=== PATIENT | male | born 1945 | race Caucasian/White ===

== ENCOUNTER 2017-07-09 15:33 | Emergency (ER) | payer OTHER ==
[~2017-07-09] VITALS: Ht 165.1 cm; Wt 61.2 kg
[~2017-07-09 15:33] MED LIST: ACET-2619 PO; CARB200T1 PO; DOCU-299 PO; LOV40I SUBQ; METO-50 PO; PRIM250T70 PO; ZOLP5TAB1 PO
[2017-07-09 15:51] VITALS: BP 157/92
--- NOTE | 2017-07-09 15:59 | NUR ---
patient put on the wc after seen by dr. grover
[2017-07-09] MEDS ORDERED: HYDROcodone/APAP 5/325 MG 1 TAB TAB PO ONE (16:05)
--- NOTE | 2017-07-09 16:23 | NUR ---
Pt to xray via w/c
--- NOTE | 2017-07-09 17:45 | NUR ---
Pt up to bathroom with walker.
--- NOTE | 2017-07-09 19:00 | NUR ---
Patient discharged with v/s stable. Written and verbal after care instructions given and explained. Patient alert, oriented and verbalized understanding of instructions. Wheel Chair Assisted with to car. All questions addressed prior to discharge. ID band removed. Patient advised to follow up with PMD. Rx of norco, ibuprofen given. Patient educated on indication of medication including possible reaction and side effects. Opportunity to ask questions provided and answered. Pt left via own walker with taxi to [facility]. Reports he lives by himself and does all adls. Refuses support or health care social worker. VSS. Requesting more Afton and I told him we can not give him more,requesting more than 10 pills. Pt informed he has Rx.
[2017-07-09 19:23] VITALS: BP 142/86
== END 2017-07-09 19:00 | disposition home or self-care (01) ==
LOC: MED 15:33
DX: S52.025A Nondisplaced fracture of olecranon process without intraarticular extension of left ulna, initial encounter for closed fracture (principal); R03.0 Elevated blood-pressure reading, without diagnosis of hypertension; Z79.899 Other long term (current) drug therapy; Z88.0 Allergy status to penicillin; W01.0XXA Fall on same level from slipping, tripping and stumbling without subsequent striking against object, initial encounter; Y93.01 Activity, walking, marching and hiking; Y92.89 Other specified places as the place of occurrence of the external cause; Y99.8 Other external cause status
CPT/HCPCS: 29105; 73080; 73090; 99284

== ENCOUNTER 2017-08-09 10:14 | Emergency (ER) | payer OTHER ==
[~2017-08-09] VITALS: Ht 170.2 cm; Wt 61.2 kg
[2017-08-09 10:16] VITALS: BP 150/70
[2017-08-09] MEDS ORDERED: NACL 0.9% 1,000 ML IV SCH (11:07)
--- NOTE | 2017-08-09 11:10 | NUR ---
72m biba with c/o weakness. Pt sts he has been laying down on his floor on his apt for the past wk. Pt sts he lives alone. Rest of his family lives out of state. Pt clothes with feces and urine. Erythema to chest and upper anterior bl legs. Rash to perineal area. Wound to left side of forehead. Wound across chest. Wounds to bl knees. See pictures in chart. Pt sts he "fractured" his left elbow. Pt has splint to left arm. Pt is aox4. GCS=15. Pt denies any cp, sob, or back/neck. NAD at this time. ER MD goodrich by bedside. Will continue to monitor.
--- NOTE | 2017-08-09 11:10 | NUR ---
Note undone in EDM - 08/09/17 at 1310 by JUAN 72m biba with c/o weakness. Pt sts he has been laying down on his floor on his apt for the past wk. Pt sts he lives alone. Rest of his family lives out of state. Pt clothes with feces and urine. Erythema to chest and upper anterior bl legs. Rash to perineal area. Wound to left side of forehead. Wound across chest. See pictures in chart. Pt sts he "fractured" his left elbow. Pt has splint to left arm. Pt is aox4. GCS=15. Pt denies any cp, sob, or back/neck. NAD at this time. ER MD goodrich by bedside. Will continue to monitor.
--- NOTE | 2017-08-09 11:16 | NUR ---
xray by bedside
--- NOTE | 2017-08-09 11:20 | NUR ---
pt left to ct via gurney accompanied by resident physician in radiology
--- NOTE | 2017-08-09 11:30 | NUR ---
supercharge repair supervisor john left message with [employer] social studies teacher
--- NOTE | 2017-08-09 11:32 | NUR ---
pt returned from ct via gurney accompanied by resident physician in radiology
[2017-08-09 12:12] LABS: HEMATOCRIT 52.2 % (36-52); MEAN CORPUSCULAR HEMOGLOBIN 31 pg (27-31); MEAN CORPUSCULAR HGB CONC 33 g/dL (33-37); MEAN CORPUSCULAR VOLUME 96 fL (80-94); PLATELET COUNT (AUTO) 384 K/uL (140-450); RED BLOOD CELL COUNT(AUTO) 5.46 MIL/uL (4.20-6.10); RED CELL DISTRIBUTION WIDTH 12.9 % (11.6-13.7)
[2017-08-09 12:27] LABS: LYMPHOCYTES % (MANUAL) 10 % (20-46); MONOCYTES % (MANUAL) 7 % (5-12)
[2017-08-09 12:43] LABS: ALBUMIN 3.5 g/dL (3.4-5.0); ANION GAP 22.9 (8-16); ASPARTATE AMINOTRANSFERASE 36 U/L (15-37); CHLORIDE 104 mmol/L (98-107); CREATININE 1.6 mg/dL (0.7-1.3); GLUCOSE 146 mg/dL (74-106); POTASSIUM 3.9 mmol/L (3.5-5.1); SODIUM SERUM 151 mmol/L (136-145); TOTAL BILIRUBIN 1.6 mg/dL (0.0-1.0)
[2017-08-09 12:46] LABS: UREA NITROGEN, BLOOD 66 mg/dL (7-18)
[2017-08-09] MEDS ORDERED: NACL 0.9% 500 ML IV ONE ×3 (12:55→14:00)
--- NOTE | 2017-08-09 12:55 | NUR ---
attempted to start ralph. pt stated "i haven't had sex in year...beautiful women like you i would like to do it again...you are turning me on". rn stopped to ralph insertion attemp.
--- NOTE | 2017-08-09 13:07 | NUR ---
no neuro changes. pt is aox4. gcs=15. nad. will continue to monitor.
--- NOTE | 2017-08-09 13:07 | NUR ---
patient wasfound at independent living facility where he been on the floor for approx 1 week. he has multiple wound to face, chest, and both knees from laying on carpet for extended period. notification to hospital social worker and they will follow up.
--- NOTE | 2017-08-09 13:28 | NUR ---
Patient to be transferred to [facility]. Is being transferred due to higher level of care. Receiving facility has accepting physician and available space. ER physician has signed transfer form. Patient or responsible green party has agreed to transfer and signed form. Patient belongings inventoried and will be sent with patient. Copy of nursing notes, lab reports, EKG, Physicians Orders and X-rays to be sent with patient. Report called to Collete wire charger at receiving facility. [facility] has been called for transfer. ETA is 1 hour.
[2017-08-09] MEDS ORDERED: LEVOFLOXACIN 500 MG/D5W PREMIX 100 ML IV ONE (13:55)
--- NOTE | 2017-08-09 14:00 | NUR ---
diana social media marketing analyst informed charge lpn and phoebe rn that patient's case does not need a follow up case or aps case at this time.
[2017-08-09 14:31] VITALS: BP 184/95
--- NOTE | 2017-08-09 14:31 | NUR ---
pt stable for transfer. pt left er with amr acls
[2017-08-09 17:15] LABS: BILIRUBIN,URINE 2+ (NEGATIVE); BLOOD, URINE 3+ (NEGATIVE); LEUKOCYTE ESTERASE ,URINE NEGATIVE (NEGATIVE); NITRITE, URINE NEGATIVE (NEGATIVE); UGLUCOSE NEGATIVE (NEGATIVE)
[2017-08-09 17:17] LABS: APPEARANCE,URINE CLEAR (CLEAR); COLOR,URINE AMBER (YELLOW)
[2017-08-09 17:38] LABS: RBC,URINE >100 /HPF (0-5); WBC,URINE NONE SEEN /HPF (0-5)
[2017-08-09 23:40] LABS: PROTHROMBIN TIME 14.6 secs (10.8-13.4)
== END 2017-08-09 14:31 | disposition short-term general hospital (02) ==
LOC: MED 10:14
DX: A41.9 Sepsis, unspecified organism (principal); R65.21 Severe sepsis with septic shock; N28.9 Disorder of kidney and ureter, unspecified; S06.360A Traumatic hemorrhage of cerebrum, unspecified, without loss of consciousness, initial encounter; G40.909 Epilepsy, unspecified, not intractable, without status epilepticus; E86.0 Dehydration; L03.211 Cellulitis of face; L03.313 Cellulitis of chest wall; Z88.0 Allergy status to penicillin; W18.39XA Other fall on same level, initial encounter; Y93.89 Activity, other specified; Y92.89 Other specified places as the place of occurrence of the external cause; Y99.8 Other external cause status
CPT/HCPCS: 36415; 70450; 71045; 72125; 73080; 80053; 80156; 81001; 82550; 82553; 83605; 83874; 83880; 84484; 85025; 85610; 85730; 87040; 87086; 93005; 96361; 96365; 99291; J1956; J7030; Q0092

== ENCOUNTER 2017-10-01 14:35 | Inpatient (IN) | payer OTHER ==
[~2017-10-01] VITALS: Ht 165.1 cm; Wt 61.2 kg
[2017-10-01 14:45] VITALS: BP 133/95
[2017-10-01 15:58] LABS: BASOPHILS # (AUTO) 0.1 K/uL (0.00-0.22); BASOPHILS % (AUTO) 1.6 % (0.0-2.0); EOSINOPHILS % (AUTO) 0.2 % (0.0-4.0); HEMATOCRIT 39.7 % (36-52); LYMPHOCYTES # (AUTO) 1.2 K/uL (2.0-11.5); LYMPHOCYTES % (AUTO) 14.9 % (20.5-51.1); MEAN CORPUSCULAR HEMOGLOBIN 31 pg (27-31); MEAN CORPUSCULAR HGB CONC 33 g/dL (33-37); MEAN CORPUSCULAR VOLUME 95.6 fL (80-94); MONOCYTES # (AUTO) 0.6 K/uL (0.8-1.0); MONOCYTES % (AUTO) 7.1 % (1.7-9.3); NEUTROPHILS # (AUTO) 5.9 K/uL (1.8-7.7); NEUTROPHILS % (AUTO) 76.2 % (42.2-75.2); PLATELET COUNT (AUTO) 434 K/uL (140-450); RED BLOOD CELL COUNT(AUTO) 4.15 MIL/uL (4.20-6.10); RED CELL DISTRIBUTION WIDTH 13.4 % (11.6-13.7); WHITE BLOOD COUNT (AUTO) 7.9 K/uL (4.8-10.8)
[2017-10-01 16:06] LABS: APPEARANCE,URINE CLEAR (CLEAR); BILIRUBIN,URINE 1+ (NEGATIVE); BLOOD, URINE NEGATIVE (NEGATIVE); COLOR,URINE YELLOW (YELLOW); LEUKOCYTE ESTERASE ,URINE NEGATIVE (NEGATIVE); NITRITE, URINE NEGATIVE (NEGATIVE); UGLUCOSE NEGATIVE (NEGATIVE)
[2017-10-01 16:09] LABS: ANION GAP 17.5 (8-16); CARBON DIOXIDE 26.6 mmol/L (21-32); CHLORIDE 103 mmol/L (98-107); CREATININE 1.2 mg/dL (0.7-1.3); GLUCOSE 75 mg/dL (74-106); POTASSIUM 3.1 mmol/L (3.5-5.1); SODIUM SERUM 144 mmol/L (136-145); UREA NITROGEN, BLOOD 23 mg/dL (7-18)
[2017-10-01 16:13] LABS: ALBUMIN 3.3 g/dL (3.4-5.0); ASPARTATE AMINOTRANSFERASE 22 U/L (15-37); TOTAL BILIRUBIN 0.4 mg/dL (0.0-1.0)
[2017-10-01] MEDS ORDERED: POTASSIUM CHLORIDE 10 MEQ TABER PO ONE (16:15)
[2017-10-01] MEDS ORDERED: NACL 0.9% 1,000 ML IV ONE (16:15)
[2017-10-01] MEDS ORDERED: NACL 0.9% 1,000 ML IV SCH (20:54)
[2017-10-01] MEDS ORDERED: ONDANSETRON 4 MG/2 ML VIAL IVP PRN (20:55)
[2017-10-01] MEDS ORDERED: ACETAMINOPHEN 325 MG TAB PO PRN (20:55)
[2017-10-01] MEDS ORDERED: MORPHINE SULFATE 2 MG/ML SYR IVP PRN (20:55)
[2017-10-01] MEDS ORDERED: DOCUSATE SODIUM 100 MG GELCAP PO PRN (21:00)
[2017-10-01 21:35] VITALS: BP 120/87
[2017-10-01] MEDS: METOPROLOL 25 MG TAB PO SCH (22:17)
[2017-10-01] MEDS: carBAMazepine 200 MG TAB PO SCH (22:17)
[2017-10-02] VITALS: BP 115/72
[2017-10-02 07:09] LABS: BASOPHILS # (AUTO) 0.1 K/uL (0.00-0.22); BASOPHILS % (AUTO) 1.2 % (0.0-2.0); EOSINOPHILS % (AUTO) 0.3 % (0.0-4.0); HEMATOCRIT 34.1 % (36-52); HEMOGLOBIN 11.5 g/dL (12.0-18.0); LYMPHOCYTES # (AUTO) 1.1 K/uL (2.0-11.5); LYMPHOCYTES % (AUTO) 19.4 % (20.5-51.1); MEAN CORPUSCULAR HEMOGLOBIN 32 pg (27-31); MEAN CORPUSCULAR HGB CONC 34 g/dL (33-37); MEAN CORPUSCULAR VOLUME 94.3 fL (80-94); MONOCYTES # (AUTO) 0.7 K/uL (0.8-1.0); MONOCYTES % (AUTO) 11.2 % (1.7-9.3); NEUTROPHILS # (AUTO) 3.9 K/uL (1.8-7.7); NEUTROPHILS % (AUTO) 67.9 % (42.2-75.2); PLATELET COUNT (AUTO) 395 K/uL (140-450); RED BLOOD CELL COUNT(AUTO) 3.61 MIL/uL (4.20-6.10); RED CELL DISTRIBUTION WIDTH 13.4 % (11.6-13.7); WHITE BLOOD COUNT (AUTO) 5.8 K/uL (4.8-10.8)
[2017-10-02 07:27] LABS: ALBUMIN 2.7 g/dL (3.4-5.0); ANION GAP 15.1 (8-16); ASPARTATE AMINOTRANSFERASE 18 U/L (15-37); CARBON DIOXIDE 26.1 mmol/L (21-32); CHLORIDE 107 mmol/L (98-107); CREATININE 0.9 mg/dL (0.7-1.3); GLUCOSE 85 mg/dL (74-106); POTASSIUM 3.2 mmol/L (3.5-5.1); SODIUM SERUM 145 mmol/L (136-145); TOTAL BILIRUBIN 0.2 mg/dL (0.0-1.0); UREA NITROGEN, BLOOD 16 mg/dL (7-18)
[2017-10-02 08:00] VITALS: BP 125/80
[2017-10-02] MEDS ORDERED: ENOXAPARIN 30 MG/0.3 ML SYR SUBQ SCH (09:00)
[2017-10-02] MEDS: METOPROLOL 25 MG TAB PO SCH (09:45)
[2017-10-02] MEDS: carBAMazepine 200 MG TAB PO SCH (09:45)
[2017-10-02 12:20] VITALS: BP 145/76
[2017-10-02 14:47] VITALS: BP 145/76
== END 2017-10-02 15:50 | disposition home or self-care (01) | DRG 640 ==
LOC: MED 14:35 → MTU 20:57 → UNDOADMIN 20:57
PROVIDERS: ADMIT Hospitalist; ATTEND Hospitalist
DX: E86.0 Dehydration (principal); E43 Unspecified severe protein-calorie malnutrition; G40.909 Epilepsy, unspecified, not intractable, without status epilepticus; E87.6 Hypokalemia; W05.0XXA Fall from non-moving wheelchair, initial encounter; I10 Essential (primary) hypertension; G89.29 Other chronic pain; F41.9 Anxiety disorder, unspecified; G47.00 Insomnia, unspecified; M54.5 Low back pain; Y93.89 Activity, other specified; Y99.8 Other external cause status; Z88.0 Allergy status to penicillin; Y92.098 Other place in other non-institutional residence as the place of occurrence of the external cause
CPT/HCPCS: 36415; 80053; 81003; 83605; 85025; 87040; 87081; 93005; 96360; 97140; 99285; J1650; J7030

== ENCOUNTER 2017-10-30 19:50 | Inpatient (IN) | payer OTHER ==
[~2017-10-30] VITALS: Ht 162.6 cm; Wt 69.9 kg
[2017-10-30 19:50] VITALS: BP 165/114
--- NOTE | 2017-10-30 19:50 | NUR ---
BIBA TO ER BED 4
--- NOTE | 2017-10-30 19:56 | NUR ---
72Y M BIBA FROM [facility] FOR GENERALIZED WEAKNESS AND FALL X 4 HOURS AGO, PER EMS PT WAS FOUND LYING IN THE BATHTUB WITH INCONTINENCE. AOX4, GCS 15, DENIES ANY PAIN AT THIS TIME. PT ALSO DENIES ANY N/V/D,SOB, CP AT THE MOMENT. PT ALERT AND APPROPRIATE. NO SIGNS OF DISTRESS AT THIS TIME. ER MD DR LARSON MADE AWARE. PMH: EPILEPSY
--- NOTE | 2017-10-30 19:56 | NUR ---
WEI LU AT BEDSIDE. PT PLACED ON 5150 HOLD FOR GRAVELY DISABLED
--- NOTE | 2017-10-30 19:56 | NUR ---
Patient in hospital gown. Personal belongings removed from room and stored WITH [place] [employer]. Patient desire to harm self or others. Potentially harmful items removed from room. Under direct observation of HARRISON WOODALL. Will continue to monitor.
--- NOTE | 2017-10-30 20:12 | NUR ---
DR. LARSON AT BED SIDE EVALUATING PT.
[2017-10-30] MEDS ORDERED: NACL 0.9% 1,000 ML IV ONE (20:15)
[2017-10-30 20:36] LABS: BASOPHILS % (AUTO) 0.5 % (0.0-2.0); HEMATOCRIT 42.5 % (36-52); HEMOGLOBIN 14.4 g/dL (12.0-18.0); LYMPHOCYTES # (AUTO) 0.9 K/uL (2.0-11.5); LYMPHOCYTES % (AUTO) 15.6 % (20.5-51.1); MEAN CORPUSCULAR HEMOGLOBIN 32 pg (27-31); MEAN CORPUSCULAR HGB CONC 34 g/dL (33-37); MEAN CORPUSCULAR VOLUME 94.1 fL (80-94); MONOCYTES # (AUTO) 0.4 K/uL (0.8-1.0); MONOCYTES % (AUTO) 6.8 % (1.7-9.3); NEUTROPHILS # (AUTO) 4.6 K/uL (1.8-7.7); NEUTROPHILS % (AUTO) 77.1 % (42.2-75.2); PLATELET COUNT (AUTO) 369 K/uL (140-450); RED BLOOD CELL COUNT(AUTO) 4.52 MIL/uL (4.20-6.10); RED CELL DISTRIBUTION WIDTH 13.7 % (11.6-13.7); WHITE BLOOD COUNT (AUTO) 5.9 K/uL (4.8-10.8)
[2017-10-30 20:36] LABS: APPEARANCE,URINE CLEAR (CLEAR); BILIRUBIN,URINE NEGATIVE (NEGATIVE); BLOOD, URINE NEGATIVE (NEGATIVE); COLOR,URINE YELLOW (YELLOW); LEUKOCYTE ESTERASE ,URINE NEGATIVE (NEGATIVE); NITRITE, URINE NEGATIVE (NEGATIVE); UGLUCOSE NEGATIVE (NEGATIVE)
--- NOTE | 2017-10-30 20:40 | NUR ---
CALLED [facility] FOR ([phone]) DINNER TRAY
[2017-10-30 20:46] LABS: ANION GAP 13.1 (8-16); CARBON DIOXIDE 29.5 mmol/L (21-32); CHLORIDE 101 mmol/L (98-107); CREATININE 1.3 mg/dL (0.7-1.3); GLUCOSE 141 mg/dL (74-106); POTASSIUM 3.6 mmol/L (3.5-5.1); SODIUM SERUM 140 mmol/L (136-145); UREA NITROGEN, BLOOD 25 mg/dL (7-18)
[2017-10-30 20:51] LABS: ALBUMIN 3.9 g/dL (3.4-5.0); ASPARTATE AMINOTRANSFERASE 20 U/L (15-37); TOTAL BILIRUBIN 0.2 mg/dL (0.0-1.0)
[2017-10-30 21:27] LABS: BARBITURATE, URINE POS. ng/ml (NEG <=200); BENZODIAZEPINE, URINE POS. ng/mL (NEG <=200); CANNABINOID, URINE NEG. ng/mL (NEG <=50); COCAINE, URINE NEG. ng/mL (NEG <=300); OPIATE, URINE NEG. ng/mL (NEG <=2000); PHENCYCLIDINE SCREEN,URINE NEG. ng/mL (NEG <=25)
--- NOTE | 2017-10-30 22:00 | NUR ---
PT RESTING IN BED AND UNDER DIRECT OBSERVATION. VSS AND RR EVEN AND UNLABORED. DENIES PAIN OR DISCOMFORT.
--- NOTE | 2017-10-30 23:51 | NUR ---
PT RESTING IN BED. DENIES ANY PAIN OR DISCOMFORT. NO ACUTE DISTRESS NOTED. WILL CONTINUE TO MONITOR.
[2017-10-31] MEDS ORDERED: PRIMIDONE 250 MG TAB PO ONE (00:40)
[2017-10-31] MEDS ORDERED: carBAMazepine 200 MG TAB PO ONE ×2 (00:40→05:00)
--- NOTE | 2017-10-31 00:47 | NUR ---
PRIMIDONE NOT AVAILABLE IN THE ER PIXIES. NORIFIED HOUSE SUP AND AWAITING FOR MED.
--- NOTE | 2017-10-31 01:15 | NUR ---
PRIMADONE MED ADMINISTERED ORDERED.
--- NOTE | 2017-10-31 02:12 | NUR ---
Patient appears to be resting comfortably in bed. Vital Signs within normal limits. Respirations even and unlabored.
--- NOTE | 2017-10-31 03:46 | NUR ---
PT CONTINUES TO BE UNDER DIRECT OBSERVATION BY JOSE C MOHR.
--- NOTE | 2017-10-31 04:08 | NUR ---
[facility]. Faxed packet to [facility].
[2017-10-31] MEDS ORDERED: ACETAMINOPHEN 325 MG TAB PO PRN (04:15)
[2017-10-31] MEDS ORDERED: ONDANSETRON 4 MG/2 ML VIAL IVP PRN (04:15)
[2017-10-31] MEDS: NACL 0.9% 1,000 ML IV SCH ×2 (04:26→16:09)
--- NOTE | 2017-10-31 04:30 | NUR ---
LABS AT BED SIDE.
[2017-10-31 05:05] LABS: CREATINE KINASE MB 0.7 ng/mL (0-3.6)
--- NOTE | 2017-10-31 05:05 | NUR ---
Patient will be admitted to care of DR. ORTEGA. Admited to TELEMETRY. Will go to room 106A. Belongings list completed AND BELONGINGS WITH SECURITY. Report to ZAKIYA ROQUE.
[2017-10-31 05:10] VITALS: BP 160/89
--- NOTE | 2017-10-31 05:10 | NUR ---
PT BROUGHT FROM ER IN STABLE CONDITION. REPORT GIVEN BY ANDRIY SIGALA, PT IS AAOX4 ON ROOM AIR. NO S/S OF DISTRESS NOTED. IV TO L AC 20G PATENT AND INTACT INFUSING WELL. SKIN WARM AND DRY TO TOUCH, WOUND TO CHEST AND R SIDE OF HEAD, CLOSED WITH SCABS. RR EVEN/UNLABORED, BOWEL SOUNDS PRESENT. INITIAL ASSESSMENT COMPLETED, PLAN OF CARE DISCUSSED WITH PT, VERBALIZED UNDERSTANDING. ALL SAFETY PRECAUTIONS MET, CALL LIGHT WITHIN REACH, WILL CONTINUE TO MONITOR
--- NOTE | 2017-10-31 05:11 | NUR ---
1:[address], PT HAS NO SUICIDAL IDEATION, NO PLAN
--- NOTE | 2017-10-31 07:16 | NUR ---
REPORT GIVEN TO DAY NURSE, PT IN STABLE CONDITION. NO S/S OF DISTRESS NOTED
--- NOTE | 2017-10-31 07:18 | NUR ---
REPORT RECEIVED FROM THERAPIST PHYSICAL NURSE AT BEDSIDE FOR CONTINUITY OF CARE. PATIENT IS AAOX4 ON ROOM AIR. NO S/S OF DISTRESS NOTED. IV TO L AC 20G PATENT AND INTACT INFUSING IVF WELL. SKIN WARM AND DRY TO TOUCH, WOUND TO CHEST AND R SIDE OF FOREHEAD, LEFT CHEEK, AND BILATERAL KNEES, CLOSED WITH SCABS. RESPIRATIONS EVEN AND UNLABORED, BOWEL SOUNDS PRESENT. UPDATED THE BOARD, PATIENT STATES THAT HE "WANTS TO GO HOME," AND THAT HE "WANTS TO TALK TO THE DOCTOR". INFORMED PATIENT THAT DOCTOR WILL BE IN LATER TO SEE HIM, PATIENT VERBALIZED UNDERSTANDING. SAFETY PRECAUTIONS IN PLACE WITH 1:1 SITTER, CALL LIGHT WITHIN REACH, WILL CONTINUE TO MONITOR PATIENT.
[2017-10-31 08:00] VITALS: BP 147/79
[2017-10-31] MEDS: ENOXAPARIN 40 MG/0.4 ML SYR SUBQ SCH (09:00)
[2017-10-31] MEDS ORDERED: PRIMIDONE 250 MG TAB PO SCH ×2 (09:00→10:30)
--- NOTE | 2017-10-31 09:46 | NUR ---
PAGED DR. ORTEGA ABOUT PATIENT'S MEDICATIONS. WILL AWAIT HER CALL BACK.
--- NOTE | 2017-10-31 10:30 | NUR ---
DR. ORTEGA CALLED BACK. NEW ORDERS IN FOR PATIENT'S MEDICATION. WILL WAIT FOR PHARMACY'S VERIFICATION. PATIENT NOW RESTING IN BED, NO DISTRESS OR SOB NOTED ON ROOM AIR. PATIENT DENIES PAIN AT THIS MOMENT. SAFETY PRECAUTION IN PLACE, 1:1 SITTER, WILL CONTINUE TO MONITOR PATIENT.
[2017-10-31] MEDS ORDERED: carBAMazepine 200 MG TAB PO SCH (11:00)
[2017-10-31] MEDS ORDERED: PRIMIDONE 50 MG TAB PO SCH (11:00)
[2017-10-31] MEDS ORDERED: METOPROLOL 25 MG TAB PO SCH (11:00)
--- NOTE | 2017-10-31 11:09 | NUR ---
NO UPDATES ON CONTACTED FACILITIES AT THIS TIME. WILL UPDATE FACILITY WHEN NEW INFORMATION HAS BEEN RECEIVED AND WILL CONTINUE TO LOOK FOR PLACEMENT FOR PATIENT.
--- NOTE | 2017-10-31 11:28 | NUR ---
ADMINISTERED ORDERED MEDICATIONS. PATIENT TOLERATED THEM WELL. PATIENT NOW RESTING IN BED, PATIENT REQUESTING TO SPEAK TO THE DOCTOR, HE "WANTS TO GO HOME," HE "FEELS BETTER, AND I CAN WALK". INFORMED PATIENT THAT DOCTOR WILL BE IN LATER TODAY TO SEE HIM. PATIENT VERBALIZED UNDERSTANDING BUT IS ANXIOUS TO GO HOME. NO DISTRESS OR SOB NOTED ON ROOM AIR. PATIENT DENIES PAIN AT THIS MOMENT. SAFETY PRECAUTION IN PLACE, 1:1 SITTER, WILL CONTINUE TO MONITOR PATIENT.
[2017-10-31 12:00] VITALS: BP 156/87
--- NOTE | 2017-10-31 14:21 | NUR ---
PATIENT AMBULATED ON UNSTEADY GAIT TO THE BATHROOM AND BACK TO BED, ASSISTED BY RN AND MOLECULAR MODELER. PATIENT HAD BOWEL MOVEMENT. PATIENT NOW RESTING IN BED, NO SIGNS OF DISTRESS NOTED. PATIENT DENIES PAIN. SAFETY PRECAUTION IN PLACE, 1:1 SITTER, WILL CONTINUE TO MONITOR PATIENT.
[2017-10-31 16:00] VITALS: BP 147/83
[2017-10-31] MEDS ORDERED: ZOLPIDEM 5 MG TAB PO PRN (16:00)
[2017-10-31] MEDS ORDERED: DOCUSATE SODIUM 100 MG GELCAP PO PRN (16:00)
--- NOTE | 2017-10-31 16:00 | NUR ---
DR. ORTEGA IN TO SEE THE PATIENT. WILL WAIT FOR HER UPDATED ORDERS.
--- NOTE | 2017-10-31 16:02 | NUR ---
Called [facility] and s/w Isma, they have no beds at this time and are still reviewing charts. Called [facility] and s/w Clover, they have no beds at this time and are still reviewing charts. Called [facility] and s/w Nyla, No beds at this time. Called [facility] and s/w Jana, they have no vacancy. Called [facility] and s/w Kan, No Beds at this time. Called [facility] and s/w Easton, No vacancies at this time. Called [facility] and s/w Marilu, No beds at this time. Called [facility] and s/w Joyce, no vacancies at this time. Called [facility] and s/w Janet, No beds available at this time. no Update on contacted facilities at this time. Will endorse to casino shift manager to keep looking for placement.
--- NOTE | 2017-10-31 16:57 | NUR ---
DR. JAIME IN TO SEE THE PATIENT. PATIENT IS NO LONGER ON 5150 HOLD.
--- NOTE | 2017-10-31 17:42 | NUR ---
PATIENT SITTING UP IN BED EATING DINNER. NO DISTRESS OR SOB NOTED ON ROOM AIR. PATIENT DENIES PAIN AT THIS MOMENT. SAFETY PRECAUTION IN PLACE, CALL LIGHT WITHIN REACH. WILL CONTINUE TO MONITOR PATIENT.
--- NOTE | 2017-10-31 19:29 | NUR ---
REPORT GIVEN TO CLINICAL TECHNICIAN NURSE AT BEDSIDE FOR CONTINUITY OF CARE. PATIENT IN STABLE CONDITION.
--- NOTE | 2017-10-31 19:30 | NUR ---
REPORT RECEIVED FROM KAYLEIGH RN, PT IS AAOX4 ON ROOM AIR. NO S/S OF DISTRESS NOTED. IV TO L AC 20G PATENT AND INTACT INFUSING WELL. SKIN WARM AND DRY TO TOUCH, WOUND TO CHEST AND R SIDE OF HEAD, RIDE SIDE OF FACE AND KNEES, CLOSED WITH SCABS.RR EVEN/UNLABORED, BOWEL SOUNDS PRESENT. INITIAL ASSESSMENT COMPLETED, PLAN OF CARE DISCUSSED WITH PT, VERBALIZED UNDERSTANDING. ALL SAFETY PRECAUTIONS MET, CALL LIGHT WITHIN REACH, WILL CONTINUE TO MONITOR
[2017-10-31 20:00] VITALS: BP 148/86
--- NOTE | 2017-10-31 20:45 | NUR ---
PT VISIBLY AGITATED. PT STATING, "I NEED TO GET OUT OF HERE, THIS PLACE HAS DONE NOTHING FOR ME BUT TAKE MY BLOOD AND MY BLOOD PRESSURE. YOU WERE SUPPOSED TO GET EGD 10 HOURS AGO. I NEED TO WALK HOME NOW." EXPLAINED TO PT THAT HE IS IN THE HOSPITAL AND IN NEED OF MEDICAL CARE, IT IS NOT SAFE FOR HIM TO WALK HOME. PT STATED HE WILL ONLY STAY UNTIL MORNING AND TO NOT GIVE HIM BREAKFAST.
[2017-10-31] MEDS: METOPROLOL 25 MG TAB PO SCH (21:18)
[2017-10-31] MEDS: carBAMazepine 200 MG TAB PO SCH (21:18)
--- NOTE | 2017-10-31 21:30 | NUR ---
ADMINISTERED NIGHT TIME MEDICATIONS WITH EDUCATION OF MEDICATION, EFFECTS, SIDE EFFECTS, AND USES. PT VERBALIZED UNDERSTANDING BUT PT STATES, "YOU NEED TO WALK UP STAIRS TO ER AND GRAB ALL THE MEDICATIONS THAT YOU CAN TO GIVE ME." I EXPLAINED TO PT THAT HE CAN ONLY TAKE MEDICATIONS THAT HAVE BEEN ORDERED BY A DOCTOR. PT GOT AGITATED AND STATED, "YOU CAN DO THAT, YOU DON'T NEED THE DOCTOR." PT ALSO STATED, "YOU ARE THE GOVERNMENT AND YOU ARE STEALING MY MONEY."
--- NOTE | 2017-10-31 22:30 | NUR ---
PT PROVIDED URINAL REQUESTED BUT PT WET THE BED, PT CHANGED, KEPT CLEAN AND DRY. WILL CONTINUE TO MONITOR
[2017-11-01] VITALS: BP 135/55
[2017-11-01] MEDS: NACL 0.9% 1,000 ML IV SCH (03:27)
[2017-11-01 04:00] VITALS: BP 135/68
[2017-11-01 06:09] LABS: BASOPHILS # (AUTO) 0.1 K/uL (0.00-0.22); BASOPHILS % (AUTO) 1.1 % (0.0-2.0); EOSINOPHILS % (AUTO) 0.2 % (0.0-4.0); HEMATOCRIT 36.6 % (36-52); HEMOGLOBIN 12.3 g/dL (12.0-18.0); LYMPHOCYTES # (AUTO) 1.7 K/uL (2.0-11.5); LYMPHOCYTES % (AUTO) 29.1 % (20.5-51.1); MEAN CORPUSCULAR HEMOGLOBIN 32 pg (27-31); MEAN CORPUSCULAR HGB CONC 34 g/dL (33-37); MEAN CORPUSCULAR VOLUME 94.5 fL (80-94); MONOCYTES # (AUTO) 0.7 K/uL (0.8-1.0); MONOCYTES % (AUTO) 11.7 % (1.7-9.3); NEUTROPHILS # (AUTO) 3.4 K/uL (1.8-7.7); NEUTROPHILS % (AUTO) 57.9 % (42.2-75.2); PLATELET COUNT (AUTO) 344 K/uL (140-450); RED BLOOD CELL COUNT(AUTO) 3.87 MIL/uL (4.20-6.10); RED CELL DISTRIBUTION WIDTH 14.1 % (11.6-13.7); WHITE BLOOD COUNT (AUTO) 5.8 K/uL (4.8-10.8)
--- NOTE | 2017-11-01 07:05 | NUR ---
ASSUMED CONTINUITY OF CARE. NO SIGNS AND SYMPTOMS OF ACUTE DISTRESS NOTED. INITIAL ASSESSMENT DONE. KEEP COMFORTABLE ON BED. EXPLAINED DIAGNOSIS, PLAN OF CARE, PAIN MANAGEMENT TEACHING, USE OF CALL LIGHT/BED/TV/BATHROOM. VERBALIZED UNDERSTANDING. FALL PRECAUTION APPLIED. CALL LIGHT WITHIN REACH.
--- NOTE | 2017-11-01 07:06 | NUR ---
REPORT GIVEN TO DAY NURSE. PT IN STABLE CONDITION NO S/S OF DISTRESS NOTED
--- NOTE | 2017-11-01 07:06 | NUR ---
Patient's Plan of Care was discussed and reviewed with FISH NET STRINGER: Alfie GU
--- NOTE | 2017-11-01 07:17 | NUR ---
CHECKED ON PATIENT. PATIENT IS ASLEEP. NO SIGNS AND SYMPTOMS OF DISTRESS NOTED. BREATHING EVEN AND UNLABORED. WILL CONTINUE TO MONITOR.
[2017-11-01 07:29] LABS: PHOSPHORUS 3.1 mg/dL (2.5-4.9)
[2017-11-01 07:31] LABS: ANION GAP 12.9 (8-16); CARBON DIOXIDE 27.7 mmol/L (21-32); CHLORIDE 101 mmol/L (98-107); CREATININE 1.2 mg/dL (0.7-1.3); GLUCOSE 93 mg/dL (74-106); POTASSIUM 3.6 mmol/L (3.5-5.1); SODIUM SERUM 138 mmol/L (136-145); UREA NITROGEN, BLOOD 25 mg/dL (7-18)
[2017-11-01 07:43] LABS: CREATINE KINASE MB 1.3 ng/mL (0-3.6)
[2017-11-01 08:00] VITALS: BP 158/75
[2017-11-01] MEDS: METOPROLOL 25 MG TAB PO SCH ×2 (08:39→21:12)
[2017-11-01] MEDS: PRIMIDONE 50 MG TAB PO SCH (08:39)
[2017-11-01] MEDS: carBAMazepine 200 MG TAB PO SCH ×2 (08:40→21:12)
[2017-11-01] MEDS: ENOXAPARIN 40 MG/0.4 ML SYR SUBQ SCH (08:45)
--- NOTE | 2017-11-01 09:40 | NUR ---
PHYSICAL THERAPIST CAME FOR PT. EVAL AND TREATMENT.
--- NOTE | 2017-11-01 11:22 | NUR ---
PATIENT HAS BEEN SCREENED AND CATEGORIZED MODERATE NUTRITION RISK. PATIENT WILL BE SEEN WITHIN 3-5 DAYS OF ADMISSION. 11/02/17 11/04/[address]
--- NOTE | 2017-11-01 11:49 | NUR ---
SPOKE WITH SNOW FROM [facility]. FAX REVIEW TO THEM AT [phone] PHONE [phone] I CALLED [facility] AND SPOKE WITH CLARY. SHE SAID REVIEWS GO TO [facility].
[2017-11-01 12:00] VITALS: BP 135/64
--- NOTE | 2017-11-01 14:32 | NUR ---
RECEIVED A CALL FROM DR. NOVA FROM [facility]. SHE ASKED IF HE NEEDED A SNF. SHE SAID [address] WILL BE LOOKING FOR A SNF. PHONE [phone] OPT 1
[2017-11-01 16:00] VITALS: BP 134/68
--- NOTE | 2017-11-01 16:00 | NUR ---
VITALS SIGNS STABLE. NO C/O PAIN. WILL MONITOR.
--- NOTE | 2017-11-01 19:20 | NUR ---
BEDSIDE REPORT GIVEN TO RUFINO KNIGHT -ZAKIYA. IN STABLE CONDITION.
--- NOTE | 2017-11-01 19:21 | NUR ---
RECEIVED REPORT FROM DAY SHIFT NURSE. AAOX4. NO DISTRESS NOTED. IV TO LEFT FA #22G, PATENT AND INTACT. PT ON ROOM AIR. PT HAS SCABS TO LEFT CHEEK, CHEST AND BOTH KNEES. NO C/O PAIN. DISCUSSED PLAN OF CARE, PT VERBALIZED UNDERSTANDING. FALL AND SEIZURE PRECAUTION IN PLACE. CALL LIGHT WITHIN REACH.
[2017-11-01 20:00] VITALS: BP 141/76
--- NOTE | 2017-11-01 20:40 | NUR ---
RECEIVED CALL FROM MAXIMILIANO OF [facility]. PER MAXIMILIANO, SHE'S LOOKING FOR SNF PLACEMENT FOR THE PT AND IF SHE FIND ONE, PT WILL BE TRANSFERRED TONIGHT. SHE ASKED IF THE PT HAS PREFERRED SNF LOCATION. PT WAS ASKED AND STATED THAT HE PREFERS SNF IN [place] OR CLOSE TO [place]. PT MADE AWARE THAT IF THEY FIND AVAILABLE SNF TONIGHT HE WILL BE TRANSFERRED. PT STATED THAT HE WANTED TO BE TRANSFERRED TOMORROW. MAXIMILIANO MADE AWARE AND STATED SHE WILL COORDINATE WITH THE STUDENT SUCCESS ADVISOR TOMORROW.
--- NOTE | 2017-11-01 23:00 | NUR ---
PT IN BED, AWAKE. NO C/O PAIN. NO RESP DISTRESS NOTED. NEEDS MET AT THIS TIME. CALL LIGHT WITHIN REACH.
[2017-11-02] VITALS: BP 149/81
--- NOTE | 2017-11-02 01:35 | NUR ---
PT SLEEPING BUT EASILY AROUSABLE. NO S/S OF DISTRESS. SEIZURE AND FALL PRECAUTION IN PLACE.
--- NOTE | 2017-11-02 03:56 | NUR ---
PT SLEEPING BUT WAKES EASILY. RESP EVEN AND UNLABORED. NO S/S OF PAIN OR DISCOMFORT.
[2017-11-02 04:00] VITALS: BP 143/67
--- NOTE | 2017-11-02 06:05 | NUR ---
PT LYING COMFORTABLY IN BED, AWAKE. NO C/O PAIN. NO RESP DISTRESS NOTED. CALL LIGHT WITHIN REACH.
--- NOTE | 2017-11-02 07:25 | NUR ---
ENDORSED PT TO DAY SHIFT NURSE. PT IN STABLE CONDITION.
--- NOTE | 2017-11-02 07:26 | NUR ---
REPORT OBTAINED FROM ARCHITECTURE TECHNICIAN NURSE AT BEDSIDE, PT IS AAOX4, NEPALI SPEAKING, ABLE TO FOLLOW COMMANDS AND MAKE NEEDS KNOWN. NO S/S OF DISTRESS, CLEAR LUNG SOUNDS, ON RA, DENIES CHEST PAIN, SR ON TELE MONITOR, SOFT ABDOMEN WITH ACTIVE BOWEL SOUNDS, CONTINENT WITH B&B'S, ABLE TO USE BATHROOM WITH STEADY GAIT. SKIN IS INTACT, WARM AND DRY TO TOUCH, IV SITE TO LEFT FOREARM, 22GA, PATENT AND SL. EXPLAINED POC TO PT, PT VERBALIZED UNDERSTANDING, SAFETY MEASURE IN PLACE, CALL LIGHT WITHIN REACH, WILL CONTINUE TO MONITOR.
[2017-11-02 08:00] VITALS: BP 154/77
[2017-11-02] MEDS: PRIMIDONE 50 MG TAB PO SCH ×2 (08:49→16:04)
[2017-11-02] MEDS: METOPROLOL 25 MG TAB PO SCH ×3 (08:49→22:04)
[2017-11-02] MEDS: carBAMazepine 200 MG TAB PO SCH ×2 (08:50→16:04)
[2017-11-02] MEDS: ENOXAPARIN 40 MG/0.4 ML SYR SUBQ SCH (08:55)
--- NOTE | 2017-11-02 10:55 | NUR ---
Attempted to contact Patient's brother Terrell Kumar at to discuss, confirm and provide patient's status (As Patient requested during screen). Mr. Terrell Kumar was not available and I left him a voice mail MGS with my contact information and request for a call back.
[2017-11-02 12:00] VITALS: BP 160/88
--- NOTE | 2017-11-02 14:00 | NUR ---
SPOKE WITH DR NOVA EARLIER FROM [facility]. THEY ARE STILL LOOKING FOR PLACEMENT. FAXED CONCURRENT REVIEW TO [facility] [phone] PHONE [phone]
--- NOTE | 2017-11-02 15:22 | NUR ---
PT STATED HE WAS TAKING TEGRETOL 200MG AND MYSOLINE 250MG THREE TIMES A DAY, CLARIFIED WITH COLETTE ANGELA TO CHANGE THE ORDER.
[2017-11-02 16:00] VITALS: BP 138/75
--- NOTE | 2017-11-02 19:24 | NUR ---
REPORT GIVEN TO CLINICAL ALLERGIST NURSE FOR CONTINUE OF CARE, PT IS IN STABLE CONDITION AT THIS TIME.
--- NOTE | 2017-11-02 19:27 | NUR ---
RECEIVED PT FROM LORENZO RN PT AAOX3 FOLLOW COMMANDS NOT DISTRESS NOTEE ON TELMETRY SR, HL ON LEFT FA PATENT INITIAL ASSESSMENT DONE
[2017-11-02 20:00] VITALS: BP 157/88
[2017-11-02] MEDS ORDERED: carBAMazepine 200 MG TAB PO SCH (21:00)
[2017-11-02] MEDS ORDERED: PRIMIDONE 50 MG TAB PO SCH (21:00)
--- NOTE | 2017-11-02 22:00 | NUR ---
PT VOIDING WELL REPOSITIONED AND GETTING SLEEP ON TELE SR
[2017-11-03] VITALS: BP 157/77
--- NOTE | 2017-11-03 | NUR ---
PT SLEEPING WELL NOT DISTRESS NOTED REPOSITIONED Q2H ON TELEMETRY SR
[2017-11-03 04:00] VITALS: BP 146/71
--- NOTE | 2017-11-03 04:00 | NUR ---
SPONGE BATH GIVEN LINEN CHANGED NOT DISTRESS NOTED REPOSITIONED Q2H NOT SEIZURES ACTIVITY NOTED
--- NOTE | 2017-11-03 06:20 | NUR ---
VOIDING WELL ON TELEMETRY SR DENIES ANY DISCOMFORT AT THIS TIME
--- NOTE | 2017-11-03 07:30 | NUR ---
RECEIVED REPORT FROM HEAVY MOBILE EQUIPMENT OPERATOR NURSE AT BEDSIDE. PT IS AAOX3, ABLE TO FOLLOW COMMANDS AND MAKE NEEDS KNOWN. NO S/S OF DISTRESS, CLEAR LUNG SOUNDS, ON RA, DENIES ANY PAIN, MULTIPLE SCABS NOTED TO BLE, FACE, AND CHEST. IV SITE TO LEFT FOREARM, 22GA, PATENT, ASYMPTOMATIC AND SL. EXPLAINED POC TO PT, PT VERBALIZED UNDERSTANDING, SAFETY MEASURE IN PLACE, CALL LIGHT WITHIN REACH, WILL CONTINUE TO MONITOR.
[2017-11-03 08:00] VITALS: BP 160/78
[2017-11-03] MEDS: PRIMIDONE 50 MG TAB PO SCH ×3 (08:50→17:28)
[2017-11-03] MEDS: METOPROLOL 25 MG TAB PO SCH (08:51)
[2017-11-03] MEDS: carBAMazepine 200 MG TAB PO SCH ×3 (08:51→17:28)
[2017-11-03] MEDS: ENOXAPARIN 40 MG/0.4 ML SYR SUBQ SCH (08:55)
--- NOTE | 2017-11-03 08:55 | NUR ---
SCHEDULED MEDS GIVEN. PT TOLERATED WELL. PLACED PERSONAL ITEMS CLOSE TO PT. NO S/S OF ACUTE DISTRESS.
--- NOTE | 2017-11-03 11:00 | NUR ---
Skeiner's Notes: I received a call from Patient's brother Mr. Terrell Kumar, he stated that he has a power of assistant county attorney for Patient and stated been his healthcare decision maker. Mr. Eduardo requested my fax number to fax a copy of the power or assistant county attorney he also stated having contact with Vy LiPatient's western tack assembly line worker at [facility]. Per Mr. Eduardo patient has been having difficulties with the retail associate manager bilingual due to his lack of hygiene and maintenance of his apartment. Per Mr. Terrell Eduardo he will be contacting patient's fight manager and handling the apartment issue and patient's belongings. He stated that patient has not been served with an eviction notice as ermelinda as he is concern and will be talking about that issue with the retail associate manager bilingual and patient when he is able. I informed Mr. Terrell Eduardo about my role as a dairy worker and my abilities to assist and provide resources to the Patient's with in my scope of practice. I informed him that placement to a SNF ([facility]) is only temporary and that is one of the MD recommendations for patient at this moment. In addition to that informed Mr. Terrell Eduardo to start addressing his current living situation with patient to have a plan for when patient is discharged from a SNF. Mr. Eduardo agreed and stated that he will follow up and will continue contact with these play writer. He thanked me for talking to him and providing him with Patient's status and ended the call.
[2017-11-03 12:00] VITALS: BP 106/67
--- NOTE | 2017-11-03 13:46 | NUR ---
11/03/17 RD INITIAL ASSESSMENT COMPLETED PLEASE REFER TO NUTRITION ASSESSMENT UNDER CARE ACTIVITY FOR ESTIMATED NUTRITIONAL NEEDS. 1. CONTINUE DIET TOLERATED 2. RD TO FOLLOW-UP 3-5 DAYS, MEDIUM RISK MARIO ZU[address]IGA RD
--- NOTE | 2017-11-03 14:05 | NUR ---
ACCORDING TO PROFESSOR OF OCEANOGRAPHY, PT WANT TO GO AMA. WENT TO TALK TO PT, PT STATED WANTING TO LEAVE THE HOSPITAL AND GO TO THE BANK. ASSESSED PT'S ORIENTATION. PT OX3, CONFUSED ABOUT THE DATE, REPEATEDLY TALKING ABOUT HIS [place] . MADE PT AWARE THAT DOCTOR RECOMMENDED RESIDENTIAL AND SPORTS ATTORNEY ARE WORKING ON FINDING A PLACE. PT AGREES TO WAIT.
[2017-11-03 16:00] VITALS: BP 129/65
--- NOTE | 2017-11-03 16:15 | NUR ---
FAXED CONCURRENT REVIEW TO [facility] [phone] PHONE [phone] SPOKE WITH BLADE AT [phone]. SHE SAID THEY ARE HAVING PROBLEMS FINDING A SNF FOR THIS PATIENT. THEY WOULD SET UP HOME HEALTH PT IF THE DOCTOR SENDS HIM HOME. LILLIAN SIGALATANNING WHEEL FILLER DIRECTOR INFORMED.
--- NOTE | 2017-11-03 19:33 | NUR ---
ENDORSED PT TO ENGINEERING FACULTY RN. PT IN STABLE CONDITION.
[2017-11-03 20:00] VITALS: BP 120/62
--- NOTE | 2017-11-03 20:00 | NUR ---
SEEN PT AWAKE, ALERT AND ORIENTED TO PLACE, TIME AND DATE EXCEPT THE YEAR. INITIAL ASSESSMENT DONE. VITAL SIGNS CHECKED. PT DENIES ANY DISCOMFORT. PLAN OF CARE DISCUSSED. SAFETY REINFORCED. SEIZURE PRECAUTION IN PLACED. CALL LIGHT W/IN REACH. WILL CONTINUE TO MONITOR.
--- NOTE | 2017-11-03 23:20 | NUR ---
SEEN PT ASLEEP HOLDING THE CALL LIGHT. VITAL SIGNS CHECKED. PT DENIES ANY DISCOMFORT. SAFETY REINFORCED.
[2017-11-04] VITALS: BP 108/66
[2017-11-04 04:35] VITALS: BP 156/74
--- NOTE | 2017-11-04 04:35 | NUR ---
SEEN PT ASLEEP BUT EASILY AROUSABLE. VITAL SIGNS CHECKED. PT DENIES ANY DISCOMFORT. WILL CONTINUE TO MONITOR.
--- NOTE | 2017-11-04 07:30 | NUR ---
RECEIVED REPORT FROM SUPPORT TEACHER NURSE AT BEDSIDE. PT IS AAOX3, ABLE TO FOLLOW COMMANDS AND MAKE NEEDS KNOWN. NO S/S OF DISTRESS, LUNG SOUNDS CLEAR, ON RA, DENIES ANY PAIN, MULTIPLE SCABS NOTED TO BLE, FACE, AND CHEST. IV SITE TO LEFT FOREARM, 22GA, PATENT, ASYMPTOMATIC AND SL. EXPLAINED POC TO PT, PT VERBALIZED UNDERSTANDING, SAFETY MEASURE IN PLACE, CALL LIGHT WITHIN REACH, WILL CONTINUE TO MONITOR.
[2017-11-04 08:00] VITALS: BP 146/80
[2017-11-04] MEDS: METOPROLOL 25 MG TAB PO SCH ×2 (09:12→20:38)
[2017-11-04] MEDS: PRIMIDONE 250 MG TAB PO SCH ×3 (09:13→17:16)
[2017-11-04] MEDS: carBAMazepine 200 MG TAB PO SCH ×3 (09:14→17:15)
[2017-11-04] MEDS: ENOXAPARIN 40 MG/0.4 ML SYR SUBQ SCH (09:20)
--- NOTE | 2017-11-04 10:30 | NUR ---
PT WORKED WITH PHYSICAL THERAPIST, NO S/S OF ACUTE DISTRESS.
--- NOTE | 2017-11-04 10:37 | NUR ---
Nuclear Medicine Tech Notes: I contact Patient's brother Mr. Terrell Eduardo to discus and inform him of Patients current status. I informed Mr. Eduardo that patient's Insurance ([employer]) has denied some services for Patient including placement for a Skill Nursing Facility in part due to lack of (SNF) that has availability and also due to a facility that will be willing to accept patient due to his past inappropriate behaviors. Our case assembler at [facility] was told that patient's past behaviors, negative experiences an interactions has limited the search and successfully finding of a SNF that will accept the patient Mr. Destin Eduardo. In addition the response is been a denial of services. Mr. Terrell Eduardo was very understanding and verbalized understanding he also confirmed and stated " I understand my brother is a difficult person to handle, and yes he has had a bad history with different places; he needs to understand that his behaviors need to change and that he needs to cooperate with people that are trying to help him however; Having said that he is not able to return to his apartment in [place]" According to Mr. Terrell Eduardo he spoke to patient's equity manager Lamar and she informed him that the apartment is consider "Contaminated " with no one to be able to live in there due to been unsanitary/hazardous" Per Mr. Terrell Eduardo the eviction process was not process yet, and patient has not been served with any documents but; equity manager will be staring the process as of today 11/04/17; therefore; technically Patient is not evicted he can get his stuff and belongings but should not stay in there to live. Mr. Terrell Eduardo stated that he has arrange with equity manager to have some one go and lemon picker patient's things out of the apartment and will continue in contact and coordinating that for patient. After discussing all these information and consulting with Carpet Floor Layer Apprentice I informed Mr. Eduardo that these securities underwriter will be contacting Marlene from [facility] and explain patients current situation and have her search for a possible board and care facility but in order to do that I need to know what is all the funds and financial resources patient is able to utilize. Mr. Tejada agreed with plan and stated that patient only counts with about $1,900.00 monthly from Federal check and stated that he has provided groceries for patient to assist him, and patient receives meals on wheels Wednesday to Wednesday. Mr. Tejada stated I may be able to pay for someone to come check on him; but I can not provide any other support. Mr. Tejada thanked me for my assistance and I let him know that I will maintain contact to update him with status. He agreed and ended the call.
--- NOTE | 2017-11-04 11:42 | NUR ---
Supervisor Plasma notes: I call [facility] ([phone] and I spoke to Marlene discussed patient's situation and need for search for board and care for patient CHRISTY with an Income of $1,900. 00 Marlene took information and asked for patient's brother power of business attorney Terrell Eduardo contact information as well, patient's clinical packet to be fax to her today. I provided information and she agreed to call back with more information on placement search.
--- NOTE | 2017-11-04 11:49 | NUR ---
1124 VM FROM BLADE ARMSTRONG AT [facility] [phone] REQUESTING CALL BACK. 1144 CALLED BLADE AND LEFT VM MESSAGE.
[2017-11-04 12:00] VITALS: BP 157/76
--- NOTE | 2017-11-04 15:30 | NUR ---
PT C/O DRY NOSE. ADD HUMIDIFIER TO O2 NC. ON 3L, NO S/S OF ACUTE DISTRESS.
[2017-11-04 16:00] VITALS: BP 122/58
--- NOTE | 2017-11-04 16:04 | NUR ---
1530 CALL RECEIVED FROM BLADE AT [facility] AND SHE STATED THAT HCP WILL DO AN EDELMIRA WITH ANY SNF THAT IS WILLING TO TAKE PT. BLADE PROVIDED HER EMAIL [email or web address] DISCUSSED WITH HER THAT FABIO LYNN IS INI THE PROCESS OF TRYING TO FIND A ROOM AND BOARD FOR PT TO WHICH HE IS AGREEABLE TO PT DOES HAVE SSI OF $1900.00/MONTH AND PTS BROTHER IS ALSO BEING OF ASSISTANCE. FAXED INFORMATION TO [facility] AND [facility].
--- NOTE | 2017-11-04 19:30 | NUR ---
RECEIVED PT IN STABLE CONDITION FROM AM NURSE. AWAKE,ALERT AND ORIENTED X3. WITH PERIODS OF CONFUSION. BEDREST. ON TELE MONITOR. HL ON THE LT FA#[id number], CLEAR AND PATENT. ON BEDREST. SIDE RAILS UP AND PADDED FOR SEIZURE PRECAUTIONS. BED ON LOW POSITION. FREQUENT ROUNDS NEEDED. CALL LIGHT AND URINAL PLACED WITHIN EASY REACH . WILL CONTINUE TO MONITOR.
--- NOTE | 2017-11-04 19:30 | NUR ---
REPORT GIVEN PARKING LOT ATTENDANT NURSE. PT IN STABLE CONDITION.
[2017-11-04 20:00] VITALS: BP 140/74
--- NOTE | 2017-11-04 20:30 | NUR ---
PT AWAKE, NO DISCOMFORT NOR PAIN NOTED.
--- NOTE | 2017-11-04 21:45 | NUR ---
PT AWAKE, WATCHING TV AT THIS TIME. NO C/O ANY DISCOMFORT NOR PAIN NOTED. WILL CONTINUE TO MONITOR.
[2017-11-05 00:15] VITALS: BP 137/67
--- NOTE | 2017-11-05 00:30 | NUR ---
PT VITAL SIGNS STABLE. NO C/O ANY DISCOMFORT N OR PAIN NOTED.
--- NOTE | 2017-11-05 02:30 | NUR ---
MADE ROUNDS. ASLEEP. NO S/S OF ANY DISTRESS NOTED. WILL CONTINUE TO MONITOR.
--- NOTE | 2017-11-05 04:20 | NUR ---
PT AWAKE. NO C/O ANY PAIN NOR DISCOMFORT NOTED.
[2017-11-05 04:30] VITALS: BP 133/72
--- NOTE | 2017-11-05 06:00 | NUR ---
SLEPT WELL DURING THE NIGHT. NO DISTRESS NOTED.
--- NOTE | 2017-11-05 07:20 | NUR ---
ENDORSED PT IN STABLE CONDITION TO AM NURSE.
--- NOTE | 2017-11-05 07:21 | NUR ---
RECEIVED REPORT FROM FRONT OFFICE CLERK NURSE AT BEDSIDE FOR CONTINUITY OF CARE. PATIENT AWAKE, ALERT AND ORIENTED X3. WITH PERIODS OF CONFUSION. PATIENT ON BEDREST, USES URINAL AND BEDSIDE COMMODE. ON TELE MONITOR. HL ON THE LT FA #[id number], PATENT, ASYMPTOMATIC, AND INTACT. SAFETY AND SEIZURE PRECAUTION IN PLACE, SIDE RAILS UP AND PADDED, BED ON LOWEST POSITION, BED ALARM ON, FREQUENT ROUNDS NEEDED. CALL LIGHT AND URINAL PLACED WITHIN EASY REACH . WILL CONTINUE TO MONITOR PATIENT.
[2017-11-05 07:58] VITALS: BP 161/87
[2017-11-05] MEDS: METOPROLOL 25 MG TAB PO SCH ×2 (08:24→20:40)
[2017-11-05] MEDS: PRIMIDONE 250 MG TAB PO SCH ×3 (08:24→16:23)
[2017-11-05] MEDS: carBAMazepine 200 MG TAB PO SCH ×3 (08:24→16:22)
[2017-11-05] MEDS: ENOXAPARIN 40 MG/0.4 ML SYR SUBQ SCH (08:25)
--- NOTE | 2017-11-05 08:25 | NUR ---
ORDERED MEDICATIONS GIVEN. PATIENT TOLERATED THEM WELL. PATIENT NOW SITTING UP IN BED EATING BREAKFAST. SAFETY AND SEIZURE PRECAUTION IN PLACE, SIDE RAILS UP AND PADDED, BED ON LOWEST POSITION, BED ALARM ON, CALL LIGHT AND URINAL PLACED WITHIN EASY REACH . WILL CONTINUE TO MONITOR PATIENT.
--- NOTE | 2017-11-05 09:45 | NUR ---
PATIENT AMBULATING ON FLOOR ON STEADY GAIT WITH WALKER AND PHYSICAL THERAPY. WILL WAIT FOR THEIR EVALUATION.
[2017-11-05 12:00] VITALS: BP 148/76
--- NOTE | 2017-11-05 12:17 | NUR ---
ORDERED MEDICATIONS GIVEN. PATIENT TOLERATED THEM WELL. PATIENT NOW SITTING UP IN BED WATCHING TV. SAFETY AND SEIZURE PRECAUTION IN PLACE, SIDE RAILS UP AND PADDED, BED ON LOWEST POSITION, BED ALARM ON, CALL LIGHT AND URINAL PLACED WITHIN EASY REACH . WILL CONTINUE TO MONITOR PATIENT.
--- NOTE | 2017-11-05 13:08 | NUR ---
1145 ITA FROM [facility] HERE TO MEET WITH PT. PT HAS BEEN AT THE FACILITY BEFORE AND IS IN AGREEMENT TO GO FOR PT. BLADE AT [facility] INFORMED THAT [facility] WILLING TO ACCEPT PT. PER BLADE JEAN BAPTISTE TO CALL HER TO MAKE ARRANGEMENTS FOR EDELMIRA. 1300 INFORMED BLADE THAT PT WILL REQUIRE W/C TRANSPORT.
--- NOTE | 2017-11-05 14:15 | NUR ---
PATIENT RESTING IN BED, NO SIGNS OF DISTRESS NOTED ON ROOM AIR. PATIENT DENIES PAIN. SAFETY AND SEIZURE PRECAUTION IN PLACE, SIDE RAILS UP AND PADDED, BED ON LOWEST POSITION, BED ALARM ON, CALL LIGHT AND URINAL PLACED WITHIN EASY REACH . WILL CONTINUE TO MONITOR PATIENT.
--- NOTE | 2017-11-05 14:17 | NUR ---
SPOKE TO DR. ORTEGA VIA TELEPHONE. DISCHARGE ORDER IN PLACE FOR PATIENT ONCE CLEARED BY HEAT TREATING FURNACE TENDER AND PLACEMENT IS FOUND. PATIENT AWARE.
[2017-11-05 16:00] VITALS: BP 128/69
--- NOTE | 2017-11-05 16:30 | NUR ---
PATIENT RESTING IN BED, NO SIGNS OF DISTRESS NOTED ON ROOM AIR. PATIENT DENIES PAIN. VITAL SIGNS WITHIN NORMAL LIMITS. SAFETY AND SEIZURE PRECAUTION IN PLACE, SIDE RAILS UP AND PADDED, BED ON LOWEST POSITION, BED ALARM ON, CALL LIGHT AND URINAL PLACED WITHIN EASY REACH . WILL CONTINUE TO MONITOR PATIENT.
--- NOTE | 2017-11-05 19:07 | NUR ---
REPORT GIVEN TO LIGHT AIR DEFENSE ARTILLERY CREWMEMBER NURSE AT BEDSIDE FOR CONTINUITY OF CARE. PATIENT IN STABLE CONDITION.
--- NOTE | 2017-11-05 19:08 | NUR ---
RECEIVED BEDSIDE REPORT FROM DAY SHIFT NURSE KAYLEIGH RN, PT STABLE, NO DISTRESS NOTED, IV TO L FA 22G SL, PATENT, INTACT, PT ON ROOM AIR NO SOB, INITIAL ASSESSMENT DONE, ALL SAFETY PRECAUTION MET, WILL CONTINUE TO MONITOR.
--- NOTE | 2017-11-05 19:09 | NUR ---
DUE MEDICATION GIVEN, PT TOLERATED WELL, NO DISTRESS NOTED, CALL LIGHT WITHIN REACH, WILL CONTINUE TO MONITOR. Addendum: 11/05/17 at 2118 by Lorelei Watts RN WRONG TIME
[2017-11-05 20:00] VITALS: BP 140/79
--- NOTE | 2017-11-05 20:40 | NUR ---
DUE MEDICATION GIVEN, PT TOLERATED WELL, NO DISTRESS NOTED, CALL LIGHT WITHIN REACH, WILL CONTINUE TO MONITOR.
--- NOTE | 2017-11-05 21:15 | NUR ---
PT AMBULATED TO BEDSIDE COMMODE AND BACK TO BED, PT URINATED 100ML OF URINE, YELLOW CLEAR, NORMAL ODOR, PT TOLERATED WELL, NO DISTRESS NOTED, CALL LIGHT WITHIN REACH.
--- NOTE | 2017-11-05 23:40 | NUR ---
CHECKED ON PT, PT STABLE, NO DISTRESS NOTED, CALL LIGHT WITHIN REACH, WILL CONTINUE TO MONITOR.
[2017-11-06] VITALS: BP 160/74
--- NOTE | 2017-11-06 02:30 | NUR ---
CHECKED ON PT, PT SLEEPING, NO DISTRESS NOTED, CALL LIGHT WITHIN REACH, WILL CONTINUE TO MONITOR.
[2017-11-06 04:00] VITALS: BP 150/71
--- NOTE | 2017-11-06 04:10 | NUR ---
CHECKED ON PT, PT SLEEPING, V/S TAKEN, PT STABLE, NO DISTRESS NOTED, CALL LIGHT WITHIN REACH, WILL CONTINUE TO MONITOR.
--- NOTE | 2017-11-06 07:10 | NUR ---
ENDORSED PLAN OF CARE TO DAY SHIFT NURSE WANDA SIGALA, PT STABLE, NO DISTRESS NOTED, CALL LIGHT WITHIN REACH.
--- NOTE | 2017-11-06 07:11 | NUR ---
RECEIVED REPORT FROM EMERGENCY RESPONSE COORDINATOR NURSE CLEOPATRA AT BEDSIDE FOR CONTINUITY OF CARE. PT IS AWAKE AND ORIENTED. INTRODUCED SELF AND UPDATED BOARD. PT VOIDED IN URINAL. 350 ML OF STRAW COLORED URINE NOTED. PT DENIES PAIN. LUNG SOUNDS CLEAR ON AUSCULTATION. SCABS ON CHEST, FACE AND BLE. BED IN LOW POSITION, WHEELS LOCKED, CALL LIGHT WITHIN REACH. BED ALARM ON. WILL CONTINUE TO MONITOR.
[2017-11-06 08:00] VITALS: BP 179/76
--- NOTE | 2017-11-06 08:32 | NUR ---
PT GOT UP TO USE BSC. HAD LARGE BM OF BROWN, FORMED STOOL. PT SITTING IN BED NOW EATING BREAKFAST. NO SIGNS OF DISTRESS. BED ALARM ON, CALL LIGHT WITHIN REACH. WILL CONTINUE TO MONITOR.
--- NOTE | 2017-11-06 08:55 | NUR ---
PT UP WITH PHYSICAL THERAPY. WALKED WITH STEADY GAIT DOWN THE GAONA WITH WALKER.
[2017-11-06] MEDS: PRIMIDONE 250 MG TAB PO SCH (09:30)
[2017-11-06] MEDS: METOPROLOL 25 MG TAB PO SCH (09:31)
[2017-11-06] MEDS: ENOXAPARIN 40 MG/0.4 ML SYR SUBQ SCH (09:32)
--- NOTE | 2017-11-06 09:35 | NUR ---
ADMINISTERED SCHEDULED MED TO PT. PT TOLERATED WELL. PT APPEARS CONFUSED. NO MEANINGFUL CONVERSATION . PT ASKING ABOUT HIS COPAY FOR SNF.WILL FOLLOW UP WITH PT REQUEST. PT STABLE CONDITION. ALL SAFETY MEASURE IN PLACE. WILL CONTINUE TO MONITOR.
[2017-11-06] MEDS: carBAMazepine 200 MG TAB PO SCH ×3 (09:36→17:46)
[2017-11-06] MEDS ORDERED: PRIMIDONE 50 MG TAB PO SCH ×2 (10:25→10:26)
[2017-11-06 12:00] VITALS: BP 135/69
[2017-11-06] MEDS: PRIMIDONE 50 MG TAB PO SCH ×2 (12:41→17:46)
--- NOTE | 2017-11-06 13:04 | NUR ---
PHYSICAL THERAPY CO-SIGN The Physical Therapy Progress Notes documented by Bowling Pin Setters Installer have been reviewed. Reviewed/Co-Signed by: Ashanti Rojas PT Documentation Done by:ZHENG NORTH CYBER SECURITY POC REVIEWED W/CYBER SECURITY; WILL BENEFIT W/ P.T. DURING ACUTE STAY; PROGRESSING W/ GAIT ENDURANCE & FUNC MOBILITY. Addendum: 11/06/17 at 1305 by Ashanti Rojas PT Amended: Links added.
--- NOTE | 2017-11-06 13:30 | NUR ---
PT SITTING IN BED WATCHING TV. PT VOIDED IN URINAL. 200ML STRAW COLORED URINE NOTED. PT ASKING FOR BELONGINGS. STATED WILL HAVE READY WHEN HE GETS DISCHARGED LATER TODAY. VERBALIZED UNDERSTANDING. CALL LIGHT WITHIN REACH. BED ALARM ON. WILL CONTINUE TO MONITOR.
[2017-11-06 16:00] VITALS: BP 137/84
--- NOTE | 2017-11-06 18:39 | NUR ---
CALLED [facility] [phone]. GAVE REPORT TO ZAKIYA HUSSEIN. GAVE PRODUCTION CONTROL SCHEDULER TIME 7-8 PM.
--- NOTE | 2017-11-06 19:00 | NUR ---
GAVE PT D/C FORMS AND HANDOUT. PT VERBALIZED UNDERSTANDING AND SIGNED FORMS. D/C IV TO L AC. IV CATHETER TIP INTACT. APPLIED DRESSING AND PRESSURE TO SITE. NO BLEEDING NOTED. GAVE PERSONAL BELONGINGS TO PT. WAITING FOR COLLAR TAILOR AT 8PM.
--- NOTE | 2017-11-06 19:20 | NUR ---
ENDORSED PT TO CAR DROPPER NURSE AT BEDSIDE FOR CONTINUITY OF CARE. PT IN STABLE CONDITION.
--- NOTE | 2017-11-06 19:22 | NUR ---
report rec'd form Xena SIGALA at bedside, pt lying in bed awake and alert oriented x 3-4 with no s/s of pain or distress v/s within normal limits . He has his bag of belongings at bedside but was concerend about his walker and wallet which was not with him during admission. pt also expressed concerend about getting in his apartment to which he has the odom with his belongings. Concerns addressed with staff at this time. pt is waiting calmly and ready and for transfer to [facility] in [place].
[2017-11-06 20:00] VITALS: BP 132/73
--- NOTE | 2017-11-06 21:00 | NUR ---
pt left via gurney with [facility]. pt stable with no c/o voiced v/s as follows T 99.1 P 65 B/P 132/73 O2 96% R 18. pt had no complaints of pain or discomfort at this time. pt left with belongings in hand. pt transported to [facility] in [place]. pt will be moved to [address] Addendum: 11/06/17 at 2206 by Domenica Renteria RN tele monitor and iv site removed before leaving. pictures taken of skin be discharge.
--- NOTE | 2017-11-07 13:52 | NUR ---
LATE NOTE FOR 11/05/17 1700 PER ITA IN ADMISSIONS AT [facility] PT ACCEPTED FOR ADMISSION BUT CANNOT ADMIT TILL EDELMIRA IS RECEIVED FROM BLADE AT [facility]. PER BLADE SHE IS STILL WORKING ON EDELMIRA. 11/06/17 1454 PER COMMUNICATION FROM BLADE AT [facility] EDELMIRA HAS BEEN SENT TO [facility]. PER ITA AT [facility] EDELMIRA HAS BEEN RECEIVED AND PT CAN GO TO ROOM 106A. CALLED CHARGE NURSE WALI AND INFORMED HER THAT PT CAN TRANSFER TODAY TO [facility] ROOM 106A UNDER CARE OF DR MORGAN. INFORMED JULIANE THAT TRANSPORT WILL BE ARRANGED BY W/C TRANSPORT BY [facility] AND SHE CAN PROVIDE AUTHORIZATION NUMBER TO FOR TRANSPORT ON WEDNESDAY.
== END 2017-11-06 21:00 | DRG 948 ==
LOC: MED 19:50 → MTU 10-31 04:15
PROVIDERS: ADMIT Hospitalist; ATTEND Hospitalist
DX: R53.1 Weakness (principal); F22 Delusional disorders; F33.1 Major depressive disorder, recurrent, moderate; W18.2XXA Fall in (into) shower or empty bathtub, initial encounter; I10 Essential (primary) hypertension; Z88.0 Allergy status to penicillin; Z79.899 Other long term (current) drug therapy; Y93.89 Activity, other specified; Y92.091 Bathroom in other non-institutional residence as the place of occurrence of the external cause; Y99.8 Other external cause status; Z86.69 Personal history of other diseases of the nervous system and sense organs
CPT/HCPCS: 36415; 71045; 80048; 80053; 80305; 81003; 82550; 82553; 83735; 83880; 84100; 84484; 85025; 87081; 97110; 97116; 97140; 97530; 99285; G0482; J1650; J7030; Q0092